=== PATIENT | female | born 1955 | race Caucasian/White ===

== ENCOUNTER → 2017-05-07 | Day surgery (SDC) | payer OTHER ==
[~2017-05-07] MED LIST: CRESTOR10 MG PO; HYDROmorphone 2 MG/ML VIAL IV PRN; IV RINGERS,LACTATED 1000ML 1,000 ML IV SCH; LEVO100T5 PO; LIDOCAINE 1% 1 ML SYRINGE. ID PRN; LIDOCAINE 2% PF Vial for OR 5 ML VIAL. ONE; MORPHINE SULFATE 2 MG/ML DISP.SYRIN. IV PRN; ONDANSETRON PF 4 MG/2 ML VIAL. IV PRN; PANT40TA5 PO; PROCHLORPERAZINE 10 MG/2 ML VIAL. IV PRN; PROPOFOL 20 ML IV ONE; fentaNYL PF VIAL 100 MCG/2 ML VIAL IV PRN
[2017-05-07 09:26] VITALS: BP 125/76
--- NOTE | 2017-05-08 15:05 | PATHOLOGY ---
PATHOLOGY REPORT * * * * * * * * FINAL DIAGNOSIS: Duodenal biopsy: - No significant pathologic abnormalities. (JPM:jeni; 05/08/2017) COMMENT: Sections of the duodenal biopsy reveal multiple segments of duodenal and small intestine mucosa. Where best oriented, the mucosal villi appear normal. There are no sprue-like changes or significant inflammatory changes. (JPM:jeni; 05/08/2017) REPORT ELECTRONICALLY SIGNED BY: Greg Shaffer M.D. DATE/TIME: 05/08/2017 15:04 * * * * * * * * GROSS PATHOLOGY: Received in formalin labeled "Eda Montiel, duodenal biopsy, r/o sprue," are multiple segments of rose soft tissue measuring from 0.2 up to 0.4 cm in maximum dimension. The specimen is submitted entirely in cassette A1. (JPM; 05/07/17) INITIAL CPT CODE(S): A; 12701 Professional services performed [place] [facility] [place] [address] Technical services performed by [facility] at [address] [place] [address]. SPECIMEN(S) RECEIVED: A.Duodenal biopsy, r/o sprue CLINICAL HISTORY: Dysphagia PATIENT: EDA MONTIEL /AGE: 4 1955 (Age: 62) PATIENT #: [id number] ALT CASE #: SPECIMEN COLLECTION DATE: 05/07/2017 SPECIMEN RECEIVED DATE: 05/07/2017 [facility] - [address] [place] [address] - PHONE: [phone] * * * END OF REPORT * * *
== END | disposition home or self-care (01) ==
LOC: SURG 07:59
PROVIDERS: ATTEND Internal Medicine Gastroenterology
DX: K29.50 Unspecified chronic gastritis without bleeding (principal); K22.2 Esophageal obstruction; M19.90 Unspecified osteoarthritis, unspecified site; E03.9 Hypothyroidism, unspecified; K21.9 Gastro-esophageal reflux disease without esophagitis; E78.00 Pure hypercholesterolemia, unspecified; Z88.0 Allergy status to penicillin; Z88.2 Allergy status to sulfonamides; Z86.69 Personal history of other diseases of the nervous system and sense organs; Z87.39 Personal history of other diseases of the musculoskeletal system and connective tissue; Z90.710 Acquired absence of both cervix and uterus; Z86.39 Personal history of other endocrine, nutritional and metabolic disease
CPT/HCPCS: 43239; 43450; 88305; J2001; J2704

== ENCOUNTER → 2018-01-19 | Outpatient (CLI) | payer OTHER | END | disposition home or self-care (01) | LOC: KCIC US 15:18 | DX: E04.2 Nontoxic multinodular goiter (principal) | CPT/HCPCS: 76536 ==

== ENCOUNTER → 2019-05-05 | Outpatient (CLI) | payer OTHER ==
[2017-05-07 09:26] VITALS: BP 125/76
[~2019-05-05] MED LIST changes: -HYDROmorphone 2 MG/ML VIAL IV PRN; -IV RINGERS,LACTATED 1000ML 1,000 ML IV SCH; -LIDOCAINE 1% 1 ML SYRINGE. ID PRN; -LIDOCAINE 2% PF Vial for OR 5 ML VIAL. ONE; -MORPHINE SULFATE 2 MG/ML DISP.SYRIN. IV PRN; -ONDANSETRON PF 4 MG/2 ML VIAL. IV PRN; -PANT40TA5 PO; +PANT40TA77 PO; -PROCHLORPERAZINE 10 MG/2 ML VIAL. IV PRN; -PROPOFOL 20 ML IV ONE; -fentaNYL PF VIAL 100 MCG/2 ML VIAL IV PRN
--- NOTE | 2019-05-05 09:14 | KCIC ---
Thyroid ultrasound 05/05/2019 INDICATION: Nontoxic goiter. Difficulty swallowing COMPARISON STUDY: Thyroid ultrasound January 19, 2018 The right thyroid measures 3.9 x 1.5 x 1.3 cm. The left thyroid measures 3.2 x 1.1 x 1.2 cm. Thyroid isthmus measures 3 mm in thickness. There is diffuse heterogeneity throughout the thyroid gland. No significant focal nodularity is identified. No evidence of hyperemia is identified on color Doppler imaging. No other focal sonographic abnormalities are seen. IMPRESSION: Heterogenous appearance of the thyroid gland without focal nodule. Findings may be sequela of chronic thyroiditis. The appearance is similar to comparison study. Electronically signed by: Bashir Randolph MD (05/05/2019 9:11 AM) [id number]
--- NOTE | 2019-05-05 10:33 | KCIC ---
Double contrast barium esophagram. Reason for study: Difficulty swallowing. Feeling of choking. Worsening over the last 2 months. Prior esophageal dilatation. Comparison studies: None. Technique: Esophagram was performed utilizing double contrast upright examination, single contrast prone examination, and evaluation of cervical esophageal swallow function. Findings: Preliminary chest x-ray. No consolidation or pleural effusion. Right basilar calcified granuloma. Normal heart size. Barium swallow was performed without difficulty. No mucosal abnormalities. No esophageal diverticulum. Lateral view of the pharynx is normal relaxation of the cricopharyngeus muscle. Small volume aspiration was identified. Small to moderate hiatal hernia identified in the prone position. Mild esophageal dysmotility with moderate amount of proximal escape and tertiary contractions. The barium tablet passed promptly into the stomach. No significant stricture identified. IMPRESSION: 1. Small volume aspiration. 2. Small to moderate hiatal hernia. 3. Mild esophageal dysmotility. Electronically signed by: Moisés St DO (05/05/2019 10:31 AM) [facility]
== END | disposition home or self-care (01) ==
LOC: KCIC US 08:11
PROVIDERS: ATTEND Family Medicine
DX: K44.9 Diaphragmatic hernia without obstruction or gangrene (principal); K22.4 Dyskinesia of esophagus; J84.10 Pulmonary fibrosis, unspecified
CPT/HCPCS: 74220; 76536

== ENCOUNTER → 2019-07-28 | Day surgery (SDC) | payer OTHER ==
[~2019-07-28] MED LIST changes: +CIPR500T94 PO; +IV RINGERS,LACTATED 1000ML 1,000 ML IV SCH; +METR500T PO; +PROPOFOL 40 ML IV ONE
[2019-07-28 09:45] VITALS: BP 116/68
== END ==
LOC: ENDOS 08:00
PROVIDERS: ATTEND Internal Medicine Gastroenterology
DX: K22.2 Esophageal obstruction (principal); K44.9 Diaphragmatic hernia without obstruction or gangrene; E03.9 Hypothyroidism, unspecified; E78.00 Pure hypercholesterolemia, unspecified; K21.9 Gastro-esophageal reflux disease without esophagitis; G43.909 Migraine, unspecified, not intractable, without status migrainosus; F15.90 Other stimulant use, unspecified, uncomplicated; Z88.1 Allergy status to other antibiotic agents; Z88.0 Allergy status to penicillin; Z87.39 Personal history of other diseases of the musculoskeletal system and connective tissue; Z72.89 Other problems related to lifestyle; Z90.710 Acquired absence of both cervix and uterus; Z98.890 Other specified postprocedural states
CPT/HCPCS: 43235; 43450; J2704

== ENCOUNTER 2019-07-30 11:45 | Emergency (ER) | payer OTHER ==
[~2019-07-30] VITALS: Ht 170.2 cm; Wt 77.6 kg
[~2019-07-30 11:45] MED LIST changes: -CIPR500T94 PO; -IV RINGERS,LACTATED 1000ML 1,000 ML IV SCH; -METR500T PO; -PROPOFOL 40 ML IV ONE
[2019-07-30] MEDS ORDERED: IV NORMAL SALINE 1000ML BAG 1,000 ML IV SCH (12:14)
--- NOTE | 2019-07-30 12:14 | PHYS DOC ---
Adult General Chief Complaint Chief Complaint: ABDOMINAL PAIN HPI HPI 64-year-old female presents to the emergency department with complaints of abdominal pain. Patient states she had esophageal stretching procedure 2 days ago. She's noticed episodes of fever up to 101.0. She presents today with upper abdominal as well as middle and epigastric pain. She states it relates to her back. She describes diarrhea, nausea. Patient has a history of laparoscopy and hysterectomy. She denies any chest pain, shortness of breath, headache or visual changes. Nothing makes her pain worse, nothing makes it better. Review of Systems Review of Systems Constitutional: + fever Eyes: Denies change in visual acuity, redness, or eye pain [] Respiratory: Denies cough or shortness of breath [] Cardiovascular: No additional information not addressed in HPI [] GI: + abdominal pain, nausea, no vomiting, bloody stools, + diarrhea [] : Denies dysuria or hematuria [] Musculoskeletal: Denies back pain or joint pain [] Integument: Denies rash or skin lesions [] Neurologic: Denies headache, focal weakness or sensory changes [] All other systems were reviewed and found to be within normal limits, except as documented in this note. Current Medications Current Medications Current Medications Medications (Trade) Dose Ordered Sig/Bentley Start Time Stop Time Status Last Admin Dose Admin Info (CONTRAST GIVEN -- Rx MONITORING) 1 each PRN DAILY PRN 07/30/19 13:15 08/01/19 13:14 Iohexol (Omnipaque 300 Mg/ml) 60 ml 1X ONCE 07/30/19 13:15 07/30/19 13:16 DC 07/30/19 13:25 60 ML Ketorolac Tromethamine (Toradol 30mg Vial) 30 mg 1X ONCE 07/30/19 12:15 07/30/19 12:18 DC 07/30/19 13:00 30 MG Ondansetron HCl (Zofran) 4 mg 1X ONCE 07/30/19 12:15 07/30/19 12:18 DC Sodium Chloride 1,000 ml @ 1,000 mls/hr Q1H 07/30/19 12:14 07/30/19 13:13 DC 07/30/19 13:02 1,000 MLS/HR Allergies Allergies Allergies Coded Allergies Type Severity Reaction Last Updated Verified Penicillins Allergy Intermediate Hives 07/28/19 Yes Sulfa (Sulfonamide Antibiotics) Allergy Intermediate Hives 07/28/19 Yes Physical Exam Physical Exam Constitutional: Well developed, well nourished, non-toxic appearance, mild distress 2/2 pain[] HENT: Normocephalic, atraumatic, bilateral external ears normal, oropharynx moist, no oral exudates, nose normal. [] Eyes: PERRLA, EOMI, conjunctiva normal, no discharge. [] Cardiovascular:Heart rate regular rhythm, no murmur [] Lungs & Thorax: Bilateral breath sounds clear to auscultation [] Abdomen: Bowel sounds normal, soft, tender in epigastric region, no masses, no pulsatile masses. [] Skin: Warm, dry, no erythema, no rash. [] Back: No tenderness, no CVA tenderness. [] Extremities: No tenderness, no cyanosis, no clubbing, ROM intact, no edema. [] Neurologic: Alert and oriented X 3, no focal deficits noted. [] Psychologic: Affect normal, judgement normal, mood normal. [] Current Patient Data Vital Signs Vital Signs Date Time Temp Pulse Resp B/P (MAP) Pulse Ox O2 Delivery O2 Flow Rate FiO2 07/30/19 11:55 98.8 90 16 123/83 (96) 96 Room Air 98.8 Lab Values Laboratory Tests Test 07/30/19 12:04 07/30/19 12:14 Urine Collection Type Unknown Urine Color Yellow Urine Clarity Clear Urine pH 6.0 Urine Specific [place] <=1.005 Urine Protein Negative mg/dL (NEG-TRACE) Urine Glucose (UA) Negative mg/dL (NEG) Urine Ketones (Stick) Trace mg/dL (NEG) Urine Blood Negative (NEG) Urine Nitrite Negative (NEG) Urine Bilirubin Negative (NEG) Urine Urobilinogen Dipstick 0.2 mg/dL (0.2 mg/dL) Urine Leukocyte Esterase Negative (NEG) Urine RBC Occ /HPF (0-2) Urine WBC Occ /HPF (0-4) Urine Squamous Epithelial Cells Few /LPF Urine Transitional Epithelial Cells Occ /LPF Urine Bacteria 0 /HPF (0-FEW) White Blood Count 11.9 x10^3/uL (4.0-11.0) H Red Blood Count 4.43 x10^6/uL (3.50-5.40) Hemoglobin 13.6 g/dL (12.0-15.5) Hematocrit 39.6 % (36.0-47.0) Mean Corpuscular Volume 90 fL (79-100) Mean Corpuscular Hemoglobin 31 pg (25-35) Mean Corpuscular Hemoglobin Concent 34 g/dL (31-37) Red Cell Distribution Width 13.3 % (11.5-14.5) Platelet Count 223 x10^3/uL (140-400) Neutrophils (%) (Auto) 76 % (31-73) H Lymphocytes (%) (Auto) 17 % (24-48) L Monocytes (%) (Auto) 6 % (0-9) Eosinophils (%) (Auto) 1 % (0-3) Basophils (%) (Auto) 0 % (0-3) Neutrophils # (Auto) 9.0 x10^3/uL (1.8-7.7) H Lymphocytes # (Auto) 2.0 x10^3/uL (1.0-4.8) Monocytes # (Auto) 0.7 x10^3/uL (0.0-1.1) Eosinophils # (Auto) 0.2 x10^3/uL (0.0-0.7) Basophils # (Auto) 0.0 x10^3/uL (0.0-0.2) Sodium Level 140 mmol/L (136-145) Potassium Level 3.9 mmol/L (3.5-5.1) Chloride Level 103 mmol/L (98-107) Carbon Dioxide Level 23 mmol/L (21-32) Anion Gap 14 (6-14) Blood Urea Nitrogen 11 mg/dL (7-20) Creatinine 1.2 mg/dL (0.6-1.0) H Estimated GFR (Cockcroft-Gault) 45.2 BUN/Creatinine Ratio 9 (6-20) Glucose Level 94 mg/dL (70-99) Calcium Level 9.5 mg/dL (8.5-10.1) Total Bilirubin 1.0 mg/dL (0.2-1.0) Aspartate Amino Transferase (AST) 23 U/L (15-37) Alanine Aminotransferase (ALT) 20 U/L (14-59) Alkaline Phosphatase 63 U/L (46-116) Troponin I Quantitative < 0.017 ng/mL (0.000-0.055) Total Protein 7.1 g/dL (6.4-8.2) Albumin 4.1 g/dL (3.4-5.0) Albumin/Globulin Ratio 1.4 (1.0-1.7) Lipase 109 U/L (73-393) Laboratory Tests 07/30/19 12:14 Laboratory Tests 07/30/19 12:14 EKG EKG EKG reviewed, heart rate 75, normal sinus rhythm, no evidence of acute ST elevation FL appreciated[] Interpretation Time: Interpretation time 1232 Radiology/Procedures Radiology/Procedures [facility] [address] [place] [address] IMAGING REPORT Signed PATIENT: ELENA GRAY ACCOUNT: [id number] : 1955 LOCATION: ER AGE: 64 SEX: F EXAM STATUS: REG ER ORD. PHYSICIAN: DIAMANTE LUBIN MD REASON: epigastric/abdominal pain + fever PROCEDURE: CT ABD PELV W/ IV CONTRST ONLY PQRS Compliance Statement: One or more of the following individualized dose reduction techniques were utilized for this examination: 1. Automated exposure control 2. Adjustment of the mA and/or kV according to patient size 3. Use of iterative reconstruction technique CT abdomen/pelvis with contrast 07/30/2019 1:05 PM INDICATION: Epigastric and abdominal pain with fever COMPARISON: None available TECHNIQUE: Multiple axial CT images of the abdomen and pelvis were obtained after the intravenous administration of 60 mL Omnipaque 300. Coronal and sagittal reformats are provided. FINDINGS: Lung bases are clear. Heart size is within normal limits. Indeterminate 4 mm lesion is identified within the left hepatic lobe anteriorly (series 2, image 91). There is a small hiatal hernia. Spleen is normal in appearance. Gallbladder is present without adjacent inflammatory changes. Bilateral adrenal glands and pancreas are normal in appearance. The abdominal aorta is normal in course and caliber. There are no pathologically enlarged lymph nodes in the abdomen and pelvis. There is no abdominal free fluid. There is no free intraperitoneal air. There is mild superficial wall thickening involving the transverse colon and left colon with minimal adjacent inflammatory change. Consideration may be given for colitis versus underdistention of the colon. Appendix is normal in appearance. No bowel obstruction is identified. There is mild circumferential wall thickening involving the gastric cardia and distal thoracic esophagus. Correlate with any long-standing history of gastroesophageal reflux disease. Evaluation with direct visualization may be of benefit to assess for neoplastic etiology. The kidneys enhance symmetrically. There is no suspicious renal mass. There is no hydronephrosis. There are no suspected calculi within the kidneys, ureters or urinary bladder. Urinary bladder is within normal limits given degree of distention. Prostate and seminal vesicles are normal. There is minimal retrolisthesis of L2 on L3 and L3 on L4. Moderate disc height loss at L5-S1 with endplate degenerative changes. IMPRESSION: 1. There is mild colonic wall thickening involving the transverse colon and left colon which may be associated with colitis versus underdistention. 2. Eccentric wall thickening is noted involving the distal thoracic esophagus and proximal gastric cardia. Findings may be inflammatory in etiology and associated with gastric esophageal reflux disease and small hiatal hernia. However, correlation with direct visualization may be of benefit if not already previously performed. 3. 4 mm indeterminate lesion involving the lateral segment left hepatic lobe may represent a cyst or hemangioma in the absence of underlying malignancy. This finding may not be resolved with ultrasound. Electronically signed by: Ephraim Nava MD (07/30/2019 1:51 PM) [email or web address] DICTATED and SIGNED BY: EPHRAIM NAVA MD DATE: 07/30/19 6243 [] Course & Med Decision Making Course & Med Decision Making Pertinent Labs and Imaging studies reviewed. (See chart for details) []64-year-old female presents to the emergency department with complaints of abdominal pain. Patient states she had esophageal stretching procedure 2 days ago. She's noticed episodes of fever up to 101.0. She presents today with upper abdominal as well as middle and epigastric pain. She states it relates to her back. She describes diarrhea, nausea. Patient has a history of laparoscopy and hysterectomy. She denies any chest pain, shortness of breath, headache or visual changes. Nothing makes her pain worse, nothing makes it better. Labs/Imaging reviewed. CT with evidence of colitis appreciated. Discussed findings with patient Plan abx upon discharge with pain meds over the next couple of days Return precautions discussed. Patient understanding of discharge plans. Dragon Disclaimer Dragon Disclaimer This electronic medical record was generated, in whole or in part, using a voice recognition dictation system. Departure Departure Impression: Primary Impression: Colitis Disposition: HOME, SELF-CARE Condition: STABLE Referrals: DELFINA VYAS DO (PCP) Patient Instructions: Colitis Additional Instructions: Recommend follow up with PCP 3 - 5 days Return to the ER with worsening symptoms, intractable pain, fever, altered mental status Tylenol/Motrin as needed for pain Take antibioitics as prescribed Scripts Ciprofloxacin Hcl (CIPRO) 500 Mg Tablet 1 TAB PO BID for 10 Days, #20 TAB 0 Refills Prov: DIAMANTE LUBIN MD 07/30/19 Metronidazole (FLAGYL) 500 Mg Tablet 500 MG PO TID for 10 Days, #30 TAB Prov: DIAMANTE LUBIN MD 07/30/19 DIAMANTE LUBIN MD Jul 30, 2019 12:14
[2019-07-30] MEDS ORDERED: ONDANSETRON PF 4 MG/2 ML VIAL. IV ONE (12:15)
[2019-07-30] MEDS ORDERED: KETOROLAC 30 MG/ML VIAL. IV ONE (12:15)
[2019-07-30 12:24] LABS: BILIRUBIN,URINE NEGATIVE (NEG); CLARITY,URINE CLEAR; COLOR,URINE YELLOW; NITRITE,URINE NEGATIVE (NEG); PROTEIN,URINE NEGATIVE (NEG-TRACE); UROBILINOGEN,URINE 0.2 mg/dL (0.2 mg/dL)
[2019-07-30 12:24] LABS: BASO % 0 % (0-3); EOS # 0.2 x10^3/uL (0.0-0.7); EOS % 1 % (0-3); HEMATOCRIT 39.6 % (36.0-47.0); HEMOGLOBIN 13.6 g/dL (12.0-15.5); LYMPH % 17 % (24-48); MEAN CORPUSCULAR HEMOGLOBIN 31 pg (25-35); MEAN CORPUSCULAR HGB CONC 34 g/dL (31-37); MEAN CORPUSCULAR VOLUME 90 fL (79-100); MONO # 0.7 x10^3/uL (0.0-1.1); MONO % 6 % (0-9); NEUT % 76 % (31-73); PLATELET COUNT 223 x10^3/uL (140-400); RED BLOOD COUNT 4.43 x10^6/uL (3.50-5.40); RED CELL DISTRIBUTION WIDTH 13.3 % (11.5-14.5); WHITE BLOOD COUNT 11.9 x10^3/uL (4.0-11.0)
[2019-07-30 12:31] LABS: CALCIUM 9.5 mg/dL (8.5-10.1); CREATININE 1.2 mg/dL (0.6-1.0); GFR 45.2; POTASSIUM 3.9 mmol/L (3.5-5.1)
[2019-07-30 12:37] LABS: ALBUMIN 4.1 g/dL (3.4-5.0); ALBUMIN/GLOBULIN RATIO 1.4 (1.0-1.7); TOTAL PROTEIN 7.1 g/dL (6.4-8.2)
[2019-07-30 12:38] LABS: SQUAMOUS EPITHELIAL CELL,UR FEW /LPF
[2019-07-30 12:39] LABS: BACTERIA,URINE 0 /HPF (0-FEW); RBC,URINE OCC /HPF (0-2); WBC,URINE OCC /HPF (0-4)
[2019-07-30] MEDS ORDERED: IOHEXOL 300 MG/ML 100ML VIAL. IV ONE (13:15)
[2019-07-30] MEDS ORDERED: CONTRAST GIVEN. MC PRN (13:15)
--- NOTE | 2019-07-30 13:54 | RAD ---
PQRS Compliance Statement: One or more of the following individualized dose reduction techniques were utilized for this examination: 1. Automated exposure control 2. Adjustment of the mA and/or kV according to patient size 3. Use of iterative reconstruction technique CT abdomen/pelvis with contrast 07/30/2019 1:05 PM INDICATION: Epigastric and abdominal pain with fever COMPARISON: None available TECHNIQUE: Multiple axial CT images of the abdomen and pelvis were obtained after the intravenous administration of 60 mL Omnipaque 300. Coronal and sagittal reformats are provided. FINDINGS: Lung bases are clear. Heart size is within normal limits. Indeterminate 4 mm lesion is identified within the left hepatic lobe anteriorly (series 2, image 91). There is a small hiatal hernia. Spleen is normal in appearance. Gallbladder is present without adjacent inflammatory changes. Bilateral adrenal glands and pancreas are normal in appearance. The abdominal aorta is normal in course and caliber. There are no pathologically enlarged lymph nodes in the abdomen and pelvis. There is no abdominal free fluid. There is no free intraperitoneal air. There is mild superficial wall thickening involving the transverse colon and left colon with minimal adjacent inflammatory change. Consideration may be given for colitis versus underdistention of the colon. Appendix is normal in appearance. No bowel obstruction is identified. There is mild circumferential wall thickening involving the gastric cardia and distal thoracic esophagus. Correlate with any long-standing history of gastroesophageal reflux disease. Evaluation with direct visualization may be of benefit to assess for neoplastic etiology. The kidneys enhance symmetrically. There is no suspicious renal mass. There is no hydronephrosis. There are no suspected calculi within the kidneys, ureters or urinary bladder. Urinary bladder is within normal limits given degree of distention. Prostate and seminal vesicles are normal. There is minimal retrolisthesis of L2 on L3 and L3 on L4. Moderate disc height loss at L5-S1 with endplate degenerative changes. IMPRESSION: 1. There is mild colonic wall thickening involving the transverse colon and left colon which may be associated with colitis versus underdistention. 2. Eccentric wall thickening is noted involving the distal thoracic esophagus and proximal gastric cardia. Findings may be inflammatory in etiology and associated with gastric esophageal reflux disease and small hiatal hernia. However, correlation with direct visualization may be of benefit if not already previously performed. 3. 4 mm indeterminate lesion involving the lateral segment left hepatic lobe may represent a cyst or hemangioma in the absence of underlying malignancy. This finding may not be resolved with ultrasound. Electronically signed by: Argelia Higgins MD (07/30/2019 1:51 PM) [email or web address]
[2019-07-30 14:27] VITALS: BP 181/111
[2019-07-30] MEDS ORDERED: CIPR500T94 PO (14:27)
[2019-07-30] MEDS ORDERED: METR500T PO (14:27)
--- NOTE | 2019-08-02 09:20 | EKG ---
[facility] [address] [place] [address] Test Date: 2019-07-30 Test Time: 12:32:48 Pat Name: ELENA GRAY Department: Room: Gender: F Sales Leader: : 1955 Requested By: DIAMANTE LUBIN Order Number: [id number] Reading MD: Measurements Intervals [place] Rate: P: PA: QRS: QRSD: T: QT: QTc: Interpretive Statements
== END 2019-07-30 14:49 | disposition home or self-care (01) ==
LOC: ER 11:45
DX: K52.9 Noninfective gastroenteritis and colitis, unspecified (principal); R50.9 Fever, unspecified; R11.0 Nausea; Z88.0 Allergy status to penicillin; Z88.2 Allergy status to sulfonamides
CPT/HCPCS: 36415; 74177; 80053; 81001; 83690; 84484; 85025; 93005; 96361; 96374; 99285; J1885; J7030; Q9967

== ENCOUNTER → 2021-08-09 | Outpatient (CLI) | payer MEDICARE, OTHER ==
[~2021-08-09] MED LIST changes: +CIPR500T94 PO; +IOHEXOL 240 MG/ML 50ML VIAL. PO ONE; +IOHEXOL 300 MG/ML 100ML VIAL. IV ONE; +METR500T PO
--- NOTE | 2021-08-09 17:24 | KCIC ---
Exam: CT abdomen/pelvis with intravenous contrast Indication: Periumbilical pain for one week, history of colitis Comparison: CT abdomen pelvis 07/30/2019 Technique: Helical CT imaging performed of the abdomen and pelvis after the intravenous administratio n of 100 mL Omnipaque 300 contrast. Sagittal and coronal reformats were obtained. One or more of the following individualized dose reduction techniques were utilized for this examinat ion: 1. Automated exposure control 2. Adjustment of the mA and/or kV according to patient size 3. Use of iterative reconstruction technique. Findings: Lower chest: Unchanged 4 mm subpleural nodule in the right lower lobe, possibly a calcified granuloma , stable from at least 2019. Mild dependent atelectasis in the lung bases. The heart is normal in siz e. There is a small moderate hiatal hernia, mild increase in size. Liver: The liver is normal in size. Unchanged tiny subcentimeter hypodensity in the left hepatic lobe . No new liver lesion. Gallbladder/Biliary Tree: Normal Pancreas: Normal. Spleen: Normal. Adrenal Glands: Normal. Kidneys/Ureters/Bladder: Kidneys are normal in size and enhance symmetrically. There is a subcentimet er hypodensity in the left kidney, too small characterize. No hydronephrosis. Ureters and bladder are normal. Reproductive Organs: Uterus is surgically absent. No adnexal mass. Stomach, small bowel, and colon: Small to moderate hiatal hernia, increased in size. Possible wall th ickening of distal esophagus although difficult to evaluate due to the presence of hiatal hernia and probable distortion of the distal esophagus. There is no small bowel obstruction or bowel wall thicke kvng. The appendix is not clearly seen. There is possible mild wall thickening in the descending colo n, although the colon is underdistended in this region. (image [id number], series 2). Mild sigmoid diverti culosis without acute diverticulitis. Vasculature: The aorta is normal in caliber. Mild scattered calcified atherosclerosis. Lymph Nodes: No lymphadenopathy. Peritoneum and retroperitoneum: No free fluid or free air. Bones: Moderate degenerative disc disease at L5-S1. Miscellaneous: No abdominal wall or inguinal hernia. Impression: 1. Possible mild wall thickening in the descending colon, although some of this may be due to underd istention. 2. Sigmoid diverticulosis without acute diverticulitis. 3. Mildly increased size of small to moderate hiatal hernia or possible distal esophageal wall thicke kvng, although evaluation limited by distortion of the distal esophagus due to the hernia. Electronically signed by: Eryn Ramirez MD (08/09/2021 5:21 PM) [facility]
== END ==
LOC: KCIC CT 14:18
PROVIDERS: ATTEND Physician Assistant
DX: K57.30 Diverticulosis of large intestine without perforation or abscess without bleeding (principal); K44.9 Diaphragmatic hernia without obstruction or gangrene; R91.1 Solitary pulmonary nodule; J98.11 Atelectasis; N28.89 Other specified disorders of kidney and ureter; M51.37 Other intervertebral disc degeneration, lumbosacral region
CPT/HCPCS: 74177; 82565; Q9966; Q9967

== ENCOUNTER → 2021-08-09 | Outpatient (CLI) | payer MEDICARE, OTHER ==
[~2021-08-09] MED LIST changes: -IOHEXOL 240 MG/ML 50ML VIAL. PO ONE; -IOHEXOL 300 MG/ML 100ML VIAL. IV ONE
--- NOTE | 2021-08-09 16:02 | KCIC ---
Bilateral digital screening mammograms with 3-D tomosynthesis: Reason for examination: Routine screening. Comparison is made to previous studies dated 07/21/2015 and 05/07/2012. Bilateral mammograms in CC and oblique projections were obtained with 2-D imaging and 3-D tomosynthes is imaging on a Siemens Inspiration unit and reviewed on the workstation. Interpretation was made wit h the benefit of CAD. The skin and nipples show no abnormalities. No abnormal axillary lymph nodes are seen. The breast par enchyma shows scattered fatty and fibroglandular density. (Breast density: Category B.) There appear to be small nodules at the 4:00 B position of the left breast 5 cm from the nipple measuring 5.7 mm i n size and in the right breast at the 6:00 position centrally 6 cm posterior to the nipple measuring 6.5 mm in size. Recommend further evaluation with ultrasound. There are no other dominant masses, fátima picious calcifications or architectural distortion. Impression: Small nodules at the 6:00 B position of the right breast centrally 6 cm posterior to the nipple measu ring 6.5 mm in size and in the 4:00 B position of the left breast 5 cm from the nipple. Recommend fur ther evaluation with ultrasound. BI-RAD Category 0: Incomplete. Needs additional imaging evaluation. "Our facility is accredited by the [employer] Mammography [employer]." This patient's information has been entered into a reminder system for the patient to be notified wit h the results of her examination and a target date for the next mammogram. Electronically signed by: Louise Guerrero MD (08/09/2021 3:59 PM) [email or web address]
== END ==
LOC: KCIC 14:35
PROVIDERS: ATTEND Nurse Practitioner Family
DX: Z12.31 Encounter for screening mammogram for malignant neoplasm of breast (principal)
CPT/HCPCS: 77063; 77067

== ENCOUNTER → 2021-08-15 | Outpatient (CLI) | payer MEDICARE, OTHER ==
--- NOTE | 2021-08-15 14:21 | KCIC ---
Bilateral breast ultrasound: Reason for examination: Nodular densities on screening mammogram. Comparison is made to mammographic exam dated 08/09/2021. Ultrasound examination was performed bilaterally of the breasts and axilla. The right breast shows no discrete cystic or solid nodule. There was some mild ductal ectasia. No abn ormal appearing lymph nodes are seen in the axilla. The left breast shows a small cyst at the 4:00 position 3 cm from the nipple measuring approximately 4 mm in size adjacent to a dilated duct. No other cystic or solid nodules are seen. There is some torsten soy ectasia. No abnormal appearing lymph nodes are seen in the left axilla. IMPRESSION: Small cyst at the 4:00 position of the left breast. No discrete nodule seen in the right breast however there was some ductal ectasia. Recommend 6 month follow-up with mammograms and ultrasound. BI-RADS Category 3: Probably Benign. "Our facility is accredited by the [employer] Mammography Program." This patient's information has been entered into a reminder system for the patient to be notified wit h the results of her examination and a target date for the next mammogram. Electronically signed by: Louise Guerrero MD (08/15/2021 2:18 PM) [email or web address]
== END ==
LOC: KCIC US 13:28
PROVIDERS: ATTEND Nurse Practitioner Family
DX: R92.8 Other abnormal and inconclusive findings on diagnostic imaging of breast (principal); N60.02 Solitary cyst of left breast
CPT/HCPCS: 76641